=== PATIENT | male | born 1950 | race Caucasian/White ===

== ENCOUNTER 2018-05-16 14:29 | Outpatient (CLI) | payer MEDICARE, OTHER ==
--- NOTE | 2018-05-16 16:58 | XRAY Report ---
Reason: RIGHT HIP PAIN Procedure Date: 05/16/2018 Accession Number: [id number] / [id number] Procedure: XRS - Hips 2V BILAT CPT Code: FULL RESULT: EXAM: BILATERAL HIP RADIOGRAPHY EXAM DATE: 05/16/2018 02:54 PM. CLINICAL HISTORY: RIGHT HIP PAIN. COMPARISON: None. TECHNIQUE: 2 views each. FINDINGS: Bones: No fractures or bone lesion. Right Hip: Severe degeneration with asymmetric joint space narrowing subchondral sclerosis and large osteophyte of the inferior femoral head. Left Hip: Moderate degeneration with asymmetric joint space narrowing and subchondral sclerosis. Soft Tissues: No soft tissue swelling. IMPRESSION: 1. Severe right hip osteoarthritis with [id number] degeneration. 2. Moderate left hip osteoarthritis. [facility]
== END 2018-05-16 14:30 | disposition home or self-care (01) ==
LOC: DI.S 14:29
PROVIDERS: ATTEND Nurse Practitioner Family
DX: M16.0 Bilateral primary osteoarthritis of hip (principal)
CPT/HCPCS: 73521